=== PATIENT | male | born 1945 | race Caucasian/White ===

== ENCOUNTER → 2017-05-30 | Outpatient (CLI) | payer MEDICARE, OTHER ==
[~2017-05-30] MED LIST: ACET325 PO; ASPI81CH PO; Ativan1 MG PO; B Complex1 EAC2 PO; CALCIT950 PO; CALCIUM SUPPLEMENT; CHOL10002 PO; CITA20 PO; CYAN100 PO; CYAN100T2 PO; Coq-10100 MG PO; Coumadin5 MG PO; DIVA250ER PO; DIVA500ER PO; ERGO400 PO; EXELON1 EACH TD; FISH OIL 1,2001 EAC1 PO; GABA300 PO; GABA600 PO; GINKGO; HYDCHL25 PO; LEVSOD50 PO; LIOT25 PO; LOSA50 PO; MELA3 PO; MEMA5TAB PO; MIRT15 PO; MULVITMIND PO; Multivitamin1 EAC1 PO; Norco 5-325 Ta1 EACH PO; OMEG1CAP30 PO; OMEP40CA12 PO; OXYC5 PO; PRAZ1 PO; PRAZ2 PO; QUET25 PO; RED YEAST; RISP.5 PO; Red Yeast Rice600 MG PO; Senna8.6 MG PO; Synthroid25 MCG PO; TOCO400 PO; TUMS300 MG PO; UBID10 PO; UBID100 PO; Vitamin B Comple1 EA PO
[2017-05-30 10:55] LABS: Source, Urine Clean Catch
[2017-05-30 11:08] LABS: Bilirubin, Urine Neg (Neg); Blood, Urine Neg (Neg); Glucose Qualitative, Urine Neg (Neg); Ketones, Urine Neg (Neg); Leukocyte Esterase, Urine Neg (Neg); Nitrite, Urine Neg (Neg); Protein, Urine Neg (Neg); Specific Gravity, Urine 1.015 (1.003-1.022); Urobilinogen, Urine NORM (Normal); pH, Urine 6.5 (5.0-8.0)
[2017-05-30 11:17] LABS: Appearance, Urine Clear (Clear); Color, Urine Yellow (P-Yellow)
== END | disposition home or self-care (01) ==
LOC: LAB SHORT 10:53 → LAB 10:53
PROVIDERS: Internal Medicine
DX: N39.0 Urinary tract infection, site not specified (principal)
CPT/HCPCS: 81003

== ENCOUNTER → 2017-09-25 | Outpatient (CLI) | payer MEDICARE, OTHER ==
[~2017-09-25] MED LIST changes: -Ativan1 MG PO; -DIVA250ER PO; -DIVA500ER PO; -GABA300 PO; -HYDCHL25 PO; -LIOT25 PO; +MELA3; -MEMA5TAB PO; -OXYC5 PO; -PRAZ1 PO; -PRAZ2 PO; -RISP.5 PO; -Synthroid25 MCG PO
[2017-09-25 11:30] LABS: Source, Urine Clean Catch
[2017-09-25 11:48] LABS: Bilirubin, Urine Neg (Neg); Blood, Urine Neg (Neg); Glucose Qualitative, Urine Neg (Neg); Ketones, Urine Neg (Neg); Leukocyte Esterase, Urine Neg (Neg); Nitrite, Urine Neg (Neg); Protein, Urine Neg (Neg); Specific Gravity, Urine 1.015 (1.003-1.022); Urobilinogen, Urine NORM (Normal)
[2017-09-25 12:07] LABS: Appearance, Urine Clear (Clear); Color, Urine Yellow (P-Yellow)
== END | disposition home or self-care (01) ==
LOC: LAB SHORT 11:29 → LAB 11:29
PROVIDERS: Internal Medicine
DX: N39.0 Urinary tract infection, site not specified (principal)
CPT/HCPCS: 81003

== ENCOUNTER → 2018-04-08 | Outpatient (CLI) | payer MEDICARE, OTHER ==
[~2018-04-08] MED LIST changes: +Ativan1 MG PO; +DIVA250ER PO; +DIVA500ER PO; +GABA300 PO; +HYDCHL25 PO; +LIOT25 PO; -MELA3; +MEMA5TAB PO; +OXYC5 PO; +PRAZ1 PO; +PRAZ2 PO; +RISP.5 PO; +Synthroid25 MCG PO
[2018-04-08 10:24] LABS: Bilirubin, Urine Neg (Neg); Blood, Urine Neg (Neg); Glucose Qualitative, Urine Neg (Neg); Ketones, Urine Neg (Neg); Leukocyte Esterase, Urine Neg (Neg); Nitrite, Urine Neg (Neg); Protein, Urine 2+ (Neg); Urobilinogen, Urine NORM (Normal)
[2018-04-08 10:30] LABS: Appearance, Urine Clear (Clear); Color, Urine Yellow (P-Yellow)
[2018-04-08 11:18] LABS: Red Blood Cells, Urine 0-2 /hpf (0-2); White Blood Cells, Urine 0-2 /hpf (0-5)
[2018-04-08 11:19] LABS: Bacteria Rare /hpf; Calcium Oxalate Crystals Many /hpf; Squamous Epithelial Cells Rare /hpf (Few)
== END | disposition home or self-care (01) ==
LOC: LAB 09:10 → LAB SHORT 09:10
PROVIDERS: Internal Medicine
DX: N39.0 Urinary tract infection, site not specified (principal)
CPT/HCPCS: 81001

== ENCOUNTER → 2018-05-14 | Outpatient (CLI) | payer MEDICARE, OTHER ==
[2018-05-14 11:23] LABS: Appearance, Urine Clear (Clear); Blood, Urine Neg (Neg); Color, Urine Yellow (P-Yellow); Glucose Qualitative, Urine Neg (Neg); Ketones, Urine 1+ (Neg); Leukocyte Esterase, Urine 1+ (Neg); Nitrite, Urine Neg (Neg); Protein, Urine 2+ (Neg); Specific Gravity, Urine 1.025 (1.003-1.022); Urobilinogen, Urine 1+ (Normal)
[2018-05-14 11:30] LABS: Bilirubin, Urine 1+ (Neg)
[2018-05-14 11:31] LABS: Bacteria Few /hpf; Calcium Oxalate Crystals Few /hpf; Red Blood Cells, Urine 0-2 /hpf (0-2); Squamous Epithelial Cells Not Seen /hpf (Few)
[2018-05-14 11:32] LABS: Mucus Light (0-Heavy)
== END | disposition home or self-care (01) ==
LOC: LAB 09:30 → LAB SHORT 09:30
PROVIDERS: Internal Medicine
DX: N39.0 Urinary tract infection, site not specified (principal)
CPT/HCPCS: 81001